=== PATIENT | male | born 1950 | race Caucasian/White ===

== ENCOUNTER 2016-11-05 23:09 | Emergency (ER) | payer MEDICARE, OTHER ==
--- NOTE | 2016-11-05 23:27 | ER Document Report ---
ED General - General Chief Complaint: Psych Problem Stated Complaint: PSYCH EVAL Time Seen by Provider: 11/05/16 23:18 Notes: 66-year-old male with a complex medical history including CAD nine-day status post CABG, PTSD and GERD presents with 2 main complaints. He was sent here for "a psychotic break" from [facility]. He states that about an hour ago he began hearing helicopters "cobras" and gunshots. This is happened to him before but it has been many years and he does have a diagnosis of PTSD. He had no visual hallucinations and does not hear the sounds now. He feels mildly anxious this time. He denies suicidality. He also has some pain beginning in his epigastric area which she states "radiates into my esophagus" similar to prior GERD burning in nature about 20 minutes after eating a cheeseburger, fries, and fried vegetables. He has had an WI before and says this feels nothing like that. - Related Data Allergies/Adverse Reactions: shellfish derived Allergy (Intermediate, Verified 11/06/16 00:12) Penicillins Allergy (Verified 11/06/16 00:12) zomax Allergy (Intermediate, Uncoded 11/06/16 00:12) Past Medical History - General Information source: Patient - Social History Smoking Status: Former Smoker Family History: None Review of Systems - Review of Systems Notes: REVIEW OF SYSTEMS GEN: Denies fever, chills, weight loss ENT: Denies sore throat, nasal discharge, ear pain EYES: Denies blurry vision, eye pain, discharge CV: From abdomen up to chest to throat, RESP: Denies cough, shortness of breath, wheezing GI: D burning and belching with nausea resolved MSK: Denies joint pain/swelling, edema, SKIN: Denies rash, skin lesions LYMPH: Denies swollen glands/lymph nodes NEURO: Denies headache, focal weakness or numbness, dizziness PSYCH: Sedations, PTSD PHYSICAL EXAMINATION General: No acute distress, well-nourished Head: Atraumatic, normocephalic ENT: Mouth normal, oropharynx moist, no exudates or tonsillar enlargement Eyes: Conjunctiva normal, pupils equal, lids normal Neck: No JVD, supple, no guarding CVS: Normal rate, regular rhythm, no murmurs intact dressings on chest. Resp: No resp distress, equal and normal breath sounds bilaterally GI: Nondistended, soft,. Scattered ecchymoses from injections. No tenderness to palpation, no rebound or guarding Ext: Shiny edema both legs 2+, hyperpigmentation Back: No CVA or midline TTP Skin: No rash, warm Lymphatic: No lymphadeopathy noted Neuro: Awake, alert. Face symmetric. GCS 15. Psychiatric: Linear thought process, clearly answers questions, normal judgment and affect. Physical Exam - Vital signs Vitals: Resp Pulse Ox 18 95 11/06/16 00:08 11/06/16 00:08 Course - Re-evaluation Re-evalutation: 11/05/16 23:26 This is a 66-year-old male presenting with auditory hallucinations. He has a history of PTSD. He is not delirious on his arrival to the ED, is quite linear in his thought process, and acknowledges that he remembers hearing helicopters gunshots" screaming, but that was the patient in the long-term." I do not think he is having a psychotic break, I also do not think he is delirious. He may be having issues because he has not slept in 3 nights and had a recent surgery. I will give him some Ativan and Seroquel for this. In terms of his abdominal pain radiating into his throat, this is most likely GERD versus indigestion given high fat diet he recently consumed, however I will rule him out for ACS with serial troponins and check for surgical consultations with a chest x-ray. He will be treated with Maalox for this. 11/06/16 00:59 EKG remains with inverted T waves in V3 and V4 and V5. His troponin is detectable but not technically positive. I called [facility] for transfer to speak with the hospitalist. I was called by Dr. Duggan from cardiac surgery, who knows the patient, at 12:50 AM. I explained the story to him, is not familiar with recent troponin levels or recent EKG changes and was not in the hospital to look these things up, and he refused transfer to the surgical service. I called [facility] back and asked for a hospitalist at 12:58 AM. 11/06/16 03:12 Troponin is slightly more elevated. I would prefer to be going down, in addition he was having some pressure-like chest pain which got better with nitro , however he refused further doses of nitroglycerin. I spoke with Dr. Sandhu from [facility] who wanted a repeat troponin. I called him back to be of the transfer center when his troponin came back and he accepted the patient. Please see EMTALA documentation. - Vital Signs Vital signs: Temp Pulse Resp BP Pulse Ox 19 145/65 H 93 11/06/16 02:01 11/06/16 02:01 11/06/16 02:01 - Laboratory Result Diagrams: 11/06/16 00:31 11/05/16 23:35 Laboratory results interpreted by me: 11/05/16 11/06/16 23:35 00:31 WBC 11.9 H RBC 3.33 L Hgb 9.8 L Hct 28.6 L RDW 15.9 H Seg Neutrophils % 86.1 H Lymphocytes % 6.0 L Absolute Neutrophils 10.2 H Sodium 133.2 L Carbon Dioxide 20 L Creatinine 1.29 H Est GFR (Non-Af Amer) 56 L Glucose 170 H - EKG Interpretation by Me EKG shows normal: Sinus rhythm Discharge - Discharge Clinical Impression: Chest pain Qualifiers: Chest pain type: other chest pain Qualified Code(s): R07.89 - Other chest pain ; R07.8 - Other chest pain Condition: Fair Disposition: [facility] Admitting Provider: Edson
--- NOTE | 2016-11-05 23:47 | RADIOLOGY REPORT (SQ) ---
EXAM DESCRIPTION: CHEST SINGLE VIEW COMPLETED DATE/TIME: 11/05/2016 11:39 pm REASON FOR STUDY: CP, recent CABG COMPARISON: None. EXAM PARAMETERS: NUMBER OF VIEWS: One view. TECHNIQUE: Single frontal radiographic view of the chest acquired. RADIATION DOSE: NA LIMITATIONS: None. FINDINGS: LUNGS AND PLEURA: No opacities, masses or pneumothorax. No pleural effusion. MEDIASTINUM AND HILAR STRUCTURES: No masses. Contour normal. HEART AND VASCULAR STRUCTURES: Heart normal in size. Normal vasculature. BONES: No acute findings. HARDWARE: Sternal wires. OTHER: No other significant finding. IMPRESSION: NO ACUTE RADIOGRAPHIC FINDING IN THE CHEST. TECHNICAL DOCUMENTATION: JOB ID: [id number]
[2016-11-06 00:15] LABS: ANION GAP 14 (5-19); BLOOD UREA NITROGEN 17 mg/dL (7-20); CALCIUM 8.9 mg/dL (8.4-10.2); CARBON DIOXIDE 20 mmol/L (22-30); CHLORIDE 99 mmol/L (98-107); CREATININE RESULT 1.29 mg/dL (0.52-1.25); GLUCOSE 170 mg/dL (75-110); POTASSIUM 3.8 mmol/L (3.6-5.0); SODIUM 133.2 mmol/L (137-145)
[2016-11-06 00:38] LABS: ABSOLUTE BASOPHILS # (AUTO) 0.1 10^3/uL (0.0-0.2); ABSOLUTE EOSINOPHILS # (AUTO) 0.2 10^3/uL (0.0-0.6); ABSOLUTE LYMPHOCYTES (AUTO) 0.7 10^3/uL (0.5-4.7); ABSOLUTE MONOCYTES (AUTO) 0.7 10^3/uL (0.1-1.4); ABSOLUTE NEUT (AUTO) 10.2 10^3/uL (1.7-8.2); BASOPHILS % (AUTO) 0.5 % (0-2); EOSINOPHILS % (AUTO) 1.9 % (0-6); HEMATOCRIT 28.6 % (37.9-51.0); HEMOGLOBIN 9.8 g/dL (13.5-17.0); HGB HCT DIFFERENCE 0.8; MEAN CORPUSCULAR HEMOGLOBIN 29.4 pg (27.0-33.4); MEAN CORPUSCULAR HGB CONC 34.2 g/dL (32.0-36.0); MEAN CORPUSCULAR VOLUME 86 fl (80-97); MONOCYTES % (AUTO) 5.5 % (3-13); RED BLOOD COUNT 3.33 10^6/uL (4.35-5.55); RED CELL DISTRIBUTION WIDTH 15.9 % (11.5-14.0); SEGMENTED NEUTROPHILS % (AUTO) 86.1 % (42-78); WHITE BLOOD COUNT 11.9 10^3/uL (4.0-10.5)
[2016-11-06] MEDS ORDERED: MAG HYDROX/AL HYDROX/SIMETH SUSP 30 ML UDCUP PO ONE (01:23)
[2016-11-06] MEDS ORDERED: LORAZEPAM 1 MG TABLET PO ONE (01:23)
[2016-11-06] MEDS ORDERED: ONDANSETRON HCL INJ/PF 4 MG/2 ML SDV IV ONE ×2 (01:23→08:37)
[2016-11-06] MEDS ORDERED: ASPIRIN 325 MG TABLET PO ONE (01:51)
[2016-11-06] MEDS ORDERED: NITROGLYCERIN 0.4 MG/TAB 25 TAB/BOTTLE SL ONE (01:51)
[2016-11-06] MEDS ORDERED: METOPROLOL TARTRATE 25 MG TABLET PO ONE (05:23)
--- NOTE | 2016-11-06 08:13 | EKG REPORT ---
SEVERITY:- ABNORMAL ECG - SINUS RHYTHM NONSPECIFIC T ABNORMALITIES, DIFFUSE LEADS BORDERLINE PROLONGED QT INTERVAL : Confirmed by: Aureliano Aguayo MD 06-Nov-2016 08:11:57
--- NOTE | 2016-11-06 08:13 | EKG REPORT ---
SEVERITY:- ABNORMAL ECG - SINUS RHYTHM NONSPECIFIC T ABNORMALITIES, ANT-LAT LEADS : Confirmed by: Aureliano Aguayo MD 06-Nov-2016 08:12:08
[2016-11-06] MEDS ORDERED: MORPHINE SULFATE 10 MG/ML INJ IV ONE (08:37)
--- NOTE | 2016-11-06 10:07 | ER Document Report ---
Doctor's Note Notes: 11/06/16 10:07 Transport is here for the patient now. He is alert, oriented, no distress. Vital signs are stable. He is stable for transport.
[2016-11-06 10:37] VITALS: BP 128/61
== END 2016-11-06 10:23 | disposition short-term general hospital (02) ==
LOC: ER 23:09
DX: R07.89 Other chest pain (principal); R74.8 Abnormal levels of other serum enzymes; I48.91 Unspecified atrial fibrillation; I25.2 Old myocardial infarction; I25.10 Atherosclerotic heart disease of native coronary artery without angina pectoris; Z95.1 Presence of aortocoronary bypass graft; R44.0 Auditory hallucinations; F43.10 Post-traumatic stress disorder, unspecified; F41.9 Anxiety disorder, unspecified; R60.0 Localized edema; R10.13 Epigastric pain; Z87.19 Personal history of other diseases of the digestive system; Z91.013 Allergy to seafood; Z88.0 Allergy status to penicillin; Z87.891 Personal history of nicotine dependence; Z72.820 Sleep deprivation; Z79.899 Other long term (current) drug therapy
CPT/HCPCS: 93005; 96376; 99285; 96374; 96375; 36415; 82962; 85025; 80048; 84484; 71010; 93010; J2270; J2405